=== PATIENT | male | born 1945 | race Caucasian/White ===

== ENCOUNTER → 2018-09-03 12:03 | Outpatient (CLI) | payer MEDICARE, SELFPAY | PROVIDERS: PCP Internal Medicine; Visit Provider Family Medicine | DX: E11.621 Type 2 diabetes mellitus with foot ulcer (principal); L97.515 Non-pressure chronic ulcer of other part of right foot with muscle involvement without evidence of necrosis; I73.9 Peripheral vascular disease, unspecified | CPT/HCPCS: 11042; 73660; 87070; 87205; 93922; 99214 ==

== ENCOUNTER → 2018-09-03 14:29 | Outpatient (CLI) | payer MEDICARE, SELFPAY ==
--- NOTE | 2018-09-03 | DI.RAD.S_ITS ---
PROCEDURE: XR TOE RT MIN 2V INDICATIONS: Type 2 diabetes mellitus with foot ulcer TECHNIQUE: 3 views of the second through fourth toe(s) acquired. COMPARISON: [facility], , TOE MINIMUM 2 VIEWS LEFT, 10/29/2016, 9:44. FINDINGS: Bones: There is indication of portal at the level of the third MTP joint. Skeletal deformities involving the second and fourth toes are seen. Osteoarthritic changes are noted throughout MTP joints and interphalangeal joints. No definite bony erosive changes are seen. No fractures or dislocations. No suspicious bony lesions. Soft tissues: No suspicious soft tissue densities. IMPRESSION: No radiographic evidence of osteomyelitis. Prior amputation of third toe. Hammertoe deformities involving second and fourth toes. Osteoarthritic changes throughout forefoot joints. No fracture or dislocation. Dictated by: Sunny Solorzano M.D. on 09/03/2018 at 15:41 Approved by: Sunny Solorzano M.D. on 09/03/2018 at 15:43
== END ==
PROVIDERS: PCP Internal Medicine; Visit Provider Family Medicine
DX: E11.621 Type 2 diabetes mellitus with foot ulcer (principal); M20.41 Other hammer toe(s) (acquired), right foot; Z89.421 Acquired absence of other right toe(s)
CPT/HCPCS: 73660

== ENCOUNTER → 2018-09-10 08:32 | Outpatient (CLI) | payer MEDICARE, SELFPAY | PROVIDERS: PCP Internal Medicine; Visit Provider Family Medicine | DX: E11.621 Type 2 diabetes mellitus with foot ulcer (principal); E11.40 Type 2 diabetes mellitus with diabetic neuropathy, unspecified; L97.515 Non-pressure chronic ulcer of other part of right foot with muscle involvement without evidence of necrosis; I73.9 Peripheral vascular disease, unspecified | CPT/HCPCS: 97597 ==

== ENCOUNTER → 2018-09-17 09:41 | Outpatient (CLI) | payer MEDICARE, SELFPAY | PROVIDERS: PCP Internal Medicine; Visit Provider Family Medicine | DX: E11.621 Type 2 diabetes mellitus with foot ulcer (principal); E11.40 Type 2 diabetes mellitus with diabetic neuropathy, unspecified; L97.515 Non-pressure chronic ulcer of other part of right foot with muscle involvement without evidence of necrosis | CPT/HCPCS: 87070; 87075; 87077; 87147; 87186; 87205; 97597; 99214 ==

== ENCOUNTER → 2018-09-23 06:44 | Outpatient (CLI) | payer MEDICARE, SELFPAY | PROVIDERS: PCP Internal Medicine; Visit Provider Family Medicine | DX: L97.509 Non-pressure chronic ulcer of other part of unspecified foot with unspecified severity (principal) ==

== ENCOUNTER → 2018-09-23 13:27 | Outpatient (CLI) | payer MEDICARE, SELFPAY | PROVIDERS: PCP Internal Medicine; Visit Provider Family Medicine | DX: E11.621 Type 2 diabetes mellitus with foot ulcer (principal); L97.515 Non-pressure chronic ulcer of other part of right foot with muscle involvement without evidence of necrosis; B95.7 Other staphylococcus as the cause of diseases classified elsewhere | CPT/HCPCS: 99214 ==

== ENCOUNTER → 2018-09-30 08:18 | Outpatient (CLI) | payer MEDICARE, SELFPAY ==
--- NOTE | 2018-09-30 | DI.MRI.S_ITS ---
PROCEDURE: MR FOOT RT WO/W CON INDICATIONS: RIGHT FOURTH TOE ULCER TECHNIQUE: Noncontrast sagittal T1 spin echo and T2 fast spin echo with fat saturation, long-axis T1 spin echo and T2 fast spin echo with fat saturation; short-axis T1 spin echo, proton density fast spin echo, and T2 fast spin echo with fat saturation through the forefoot. Post-contrast short axis, long axis, and sagittal T1 spin echo with fat saturation through the forefoot. COMPARISON: [facility], CR, XR TOE RT MIN 2V, 09/03/2018, 14:39. FINDINGS: Image quality: Excellent. Bones and joints: There is abnormal edema and enhancement of the 4th middle phalanx with mild associated T1 hypointensity. There is mild associated cortical erosion as well as mild periosteal edema and enhancement on the plantar aspect of the 4th middle phalanx. The findings are consistent with osteomyelitis. There is mild periosteal edema and enhancement also noted along the distal plantar aspect of the 4th proximal phalanx which may also represent developing osteomyelitis. No definite evidence of osteomyelitis elsewhere. No joint effusions. There is mild to moderate degeneration of the 1st interphalangeal joint with mild osteophytosis and subchondral edema. Mild degeneration also demonstrated at the 1st metatarsophalangeal joint. There is prior amputation of the 3rd toe at the level of the metatarsophalangeal joint. The sesamoid bones appear in expected positions, without internal edema. No metatarsophalangeal joint degeneration. No intraosseous lesions. Soft tissues: There is a suspected small ulcer along the plantar aspect of the 4th toe with associated soft tissue edema and enhancement. No discrete abscess collection or sinus tract visualized. The visualized plantar foot muscles demonstrate normal signal and bulk. Visualized flexor and extensor tendons appear intact, without tenosynovitis. The distal insertions of the peroneus brevis and longus tendons appear intact. The principal Lisfranc ligament appears intact. No soft tissue ganglion cysts or bursal fluid collections. IMPRESSION: 1. Findings consistent of osteomyelitis of the 4th middle phalanx and suspected developing osteomyelitis in the distal plantar aspect of the 4th proximal phalanx. No joint effusions to suggest septic arthritis. 2. Abnormal soft tissue edema and enhancement of the 4th toe consistent with cellulitis with a suspected small ulcer along the plantar aspect. No discrete abscess collection or sinus tract identified. Dictated by: Eddie Steward M.D. on 09/30/2018 at 13:50 Approved by: Eddie Steward M.D. on 09/30/2018 at 14:02
== END ==
PROVIDERS: PCP Internal Medicine; Referring Provider Family Medicine; Visit Provider Internal Medicine
DX: E11.621 Type 2 diabetes mellitus with foot ulcer (principal); L97.515 Non-pressure chronic ulcer of other part of right foot with muscle involvement without evidence of necrosis; M86.171 Other acute osteomyelitis, right ankle and foot
CPT/HCPCS: 73720; 99214; A9579

== ENCOUNTER → 2018-09-30 09:44 | Outpatient (CLI) | payer MEDICARE, SELFPAY | PROVIDERS: PCP Internal Medicine; Visit Provider Family Medicine | DX: E11.621 Type 2 diabetes mellitus with foot ulcer (principal); L97.515 Non-pressure chronic ulcer of other part of right foot with muscle involvement without evidence of necrosis; M86.171 Other acute osteomyelitis, right ankle and foot | CPT/HCPCS: 99214 ==

== ENCOUNTER → 2018-10-07 09:50 | Outpatient (CLI) | payer MEDICARE, SELFPAY | PROVIDERS: PCP Internal Medicine; Visit Provider Family Medicine | DX: E11.621 Type 2 diabetes mellitus with foot ulcer (principal); E11.40 Type 2 diabetes mellitus with diabetic neuropathy, unspecified; L97.515 Non-pressure chronic ulcer of other part of right foot with muscle involvement without evidence of necrosis; M86.171 Other acute osteomyelitis, right ankle and foot; L03.031 Cellulitis of right toe | CPT/HCPCS: 97597 ==

== ENCOUNTER → 2018-10-14 10:21 | Outpatient (CLI) | payer MEDICARE, SELFPAY | PROVIDERS: PCP Internal Medicine; Visit Provider Family Medicine | DX: E11.621 Type 2 diabetes mellitus with foot ulcer (principal); E11.40 Type 2 diabetes mellitus with diabetic neuropathy, unspecified; L97.515 Non-pressure chronic ulcer of other part of right foot with muscle involvement without evidence of necrosis; M86.171 Other acute osteomyelitis, right ankle and foot; Z79.899 Other long term (current) drug therapy | CPT/HCPCS: 99214 ==

== ENCOUNTER → 2018-10-19 11:02 | Outpatient (CLI) | payer MEDICARE, SELFPAY ==
--- NOTE | 2018-10-19 | DI.RAD.S_ITS ---
PROCEDURE: XR CHEST 2V INDICATIONS: Encounter for examination and observation for other specifie TECHNIQUE: 2 views of the chest were acquired. COMPARISON: None. FINDINGS: Surgical changes and devices: Aortic root expandable stent noted, presumed valve annulus. Lungs and pleura: Lungs are clear. No pleural effusions or pneumothorax. Mediastinum: Mediastinal contours are normal. Heart size is normal. Bones and chest wall: No suspicious bony abnormalities. Soft tissues appear unremarkable. IMPRESSION: Expandable aortic root stent presumably for aortic valve annulus. No cardiomegaly or CHF. Dictated by: Flako Phipps M.D. on 10/19/2018 at 11:58 Approved by: Flako Phipps M.D. on 10/19/2018 at 12:09
[2018-10-19 12:18] LABS: Alanine Aminotransferase 22 IU/L (21-72); Albumin Globulin Ratio 1.1 (1.0-2.8); Alkaline Phosphatase 68 U/L (38-126); Aspartate Aminotransferase 28 IU/L (17-59); Bilirubin Total 0.7 mg/dL (0.2-1.3); Blood Urea Nitrogen 39 mg/dL (9-20); Calcium 9.7 mg/dL (8.4-10.2); Carbon Dioxide 27 mmol/L (22-32); Chloride 103 mmol/L (98-107); Globulin 3.8 g/dL (1.7-4.1); Glucose 163 mg/dL (80-110); Potassium 4.6 mmol/L (3.4-5.1); Sodium 140 mmol/L (137-145); Total Protein 7.8 g/dL (6.3-8.2)
[2018-10-19 12:33] LABS: Estimated Glomerular Filt Rate 45.6 mL/min (>60); HEMOLYSIS < 15 (0-50)
[2018-10-19 13:54] LABS: Digoxin < 0.4 ng/mL (0.8-2.0)
== END ==
PROVIDERS: PCP Internal Medicine; Visit Provider Family Medicine
DX: Z04.89 Encounter for examination and observation for other specified reasons (principal); Z79.899 Other long term (current) drug therapy
CPT/HCPCS: 36415; 71046; 80053; 80162

== ENCOUNTER → 2018-10-28 10:51 | Outpatient (CLI) | payer MEDICARE, SELFPAY ==
[2018-10-28 11:39] LABS: Add Manual Diff / Slide Review NO; Basophils Absolute Auto 0 /uL (0-100); Basophils Percent Auto 0.5 % (0-2); Eosinophils Absolute Auto 700 /uL (0-450); Eosinophils Percent Auto 10.6 % (2-4); Hematocrit 37.6 % (41-53); Hemoglobin 12.6 g/dL (13.5-17.5); Lymphocytes Absolute Auto 1900 /uL (1100-4500); Lymphocytes Percent Auto 28.2 % (25-40); Mean Corpuscular HGB Conc 33.6 % (30-36); Mean Corpuscular Volume 95.3 fL (80-100); Monocytes Absolute Auto 600 /uL (0-900); Monocytes Percent Auto 8.9 % (3-14); Neutrophils Absolute Auto 3500 /uL (1500-7000); Neutrophils Percent Auto 51.8 % (50-75); Platelet Count 129 X10^3/uL (150-400); Red Blood Cell Count 3.95 X10^6/uL (4.5-5.9); White Blood Cell Count 6.7 X10^3/uL (4.5-11.0)
[2018-10-28 12:24] LABS: Erythrocyte Sedimentation Rate 34 MM/HR (0-15)
[2018-10-28 12:51] LABS: BUN Creatinine Ratio 22.9 (6-22); Blood Urea Nitrogen 32 mg/dL (9-20); C-Reactive Protein Quant 0.5 mg/dL (<1.0); Calcium 9.9 mg/dL (8.4-10.2); Carbon Dioxide 28 mmol/L (22-32); Chloride 105 mmol/L (98-107); Estimated Glomerular Filt Rate 49.4 mL/min (>60); Glucose 176 mg/dL (80-110); HEMOLYSIS < 15 (0-50); Sodium 143 mmol/L (137-145)
[2018-10-28 12:52] LABS: Digoxin < 0.4 ng/mL (0.8-2.0)
== END ==
PROVIDERS: PCP Internal Medicine; Visit Provider Family Medicine
DX: E11.621 Type 2 diabetes mellitus with foot ulcer (principal); L97.514 Non-pressure chronic ulcer of other part of right foot with necrosis of bone; M86.171 Other acute osteomyelitis, right ankle and foot; Z79.899 Other long term (current) drug therapy
CPT/HCPCS: 36415; 80048; 80162; 85025; 85651; 86140

== ENCOUNTER → 2018-10-28 11:27 | Outpatient (CLI) | payer MEDICARE, SELFPAY | PROVIDERS: PCP Internal Medicine; Visit Provider Family Medicine | DX: E11.621 Type 2 diabetes mellitus with foot ulcer (principal); E11.40 Type 2 diabetes mellitus with diabetic neuropathy, unspecified; L97.515 Non-pressure chronic ulcer of other part of right foot with muscle involvement without evidence of necrosis; M86.171 Other acute osteomyelitis, right ankle and foot; Z79.899 Other long term (current) drug therapy | CPT/HCPCS: 99213; 99214 ==

== ENCOUNTER → 2018-11-02 10:56 | Outpatient (CLI) | payer MEDICARE, SELFPAY ==
--- NOTE | 2018-11-02 | DI.RAD.S_ITS ---
PROCEDURE: XR TOE RT MIN 2V INDICATIONS: RIGHT 4TH TOE PAIN DR CANALES 3 VIEWS TECHNIQUE: 3 views of the fourth toe(s) acquired. COMPARISON: [facility], MR, MR FOOT RT WO/W CON, 09/30/2018, 8:34. [facility], CR, XR TOE RT MIN 2V, 09/03/2018, 14:39. FINDINGS: Bones: No fractures or dislocations. There is lucency and cortical defect in the fourth middle phalanx compatible with osteomyelitis. There is amputation of the third toe. Soft tissues: No suspicious soft tissue densities. Soft tissue swelling of the forefoot. IMPRESSION: Lucency and cortical defect in the fourth middle phalanx are likely secondary to osteomyelitis. Dictated by: Ramya Renee M.D. on 11/02/2018 at 14:03 Approved by: Ramya Renee M.D. on 11/02/2018 at 14:06
== END ==
PROVIDERS: PCP Internal Medicine; Visit Provider Family Medicine
DX: E11.621 Type 2 diabetes mellitus with foot ulcer (principal); L97.514 Non-pressure chronic ulcer of other part of right foot with necrosis of bone; M79.674 Pain in right toe(s)
CPT/HCPCS: 73660

== ENCOUNTER → 2018-11-04 09:25 | Outpatient (CLI) | payer MEDICARE, SELFPAY | PROVIDERS: PCP Internal Medicine; Visit Provider Family Medicine | DX: E11.621 Type 2 diabetes mellitus with foot ulcer (principal); E11.40 Type 2 diabetes mellitus with diabetic neuropathy, unspecified; L97.515 Non-pressure chronic ulcer of other part of right foot with muscle involvement without evidence of necrosis; M86.171 Other acute osteomyelitis, right ankle and foot; I73.9 Peripheral vascular disease, unspecified; Z79.899 Other long term (current) drug therapy | CPT/HCPCS: 97597 ==

== ENCOUNTER → 2018-11-11 10:19 | Outpatient (CLI) | payer MEDICARE, SELFPAY | PROVIDERS: PCP Internal Medicine; Visit Provider Family Medicine | DX: E11.621 Type 2 diabetes mellitus with foot ulcer (principal); L97.515 Non-pressure chronic ulcer of other part of right foot with muscle involvement without evidence of necrosis | CPT/HCPCS: 99212 ==

== ENCOUNTER → 2018-11-18 10:41 | Outpatient (CLI) | payer MEDICARE, SELFPAY | PROVIDERS: PCP Internal Medicine; Visit Provider Family Medicine | DX: E11.621 Type 2 diabetes mellitus with foot ulcer (principal); L97.515 Non-pressure chronic ulcer of other part of right foot with muscle involvement without evidence of necrosis; R60.0 Localized edema | CPT/HCPCS: 99213 ==

== ENCOUNTER → 2018-11-25 09:45 | Outpatient (CLI) | payer MEDICARE, SELFPAY | PROVIDERS: PCP Internal Medicine; Visit Provider Family Medicine | DX: E11.621 Type 2 diabetes mellitus with foot ulcer (principal); L97.515 Non-pressure chronic ulcer of other part of right foot with muscle involvement without evidence of necrosis; M86.171 Other acute osteomyelitis, right ankle and foot; Z79.899 Other long term (current) drug therapy; R60.0 Localized edema | CPT/HCPCS: 11042 ==

== ENCOUNTER → 2018-12-02 09:04 | Outpatient (CLI) | payer MEDICARE, SELFPAY | PROVIDERS: PCP Internal Medicine; Visit Provider Family Medicine | DX: E11.621 Type 2 diabetes mellitus with foot ulcer (principal); E11.40 Type 2 diabetes mellitus with diabetic neuropathy, unspecified; L97.515 Non-pressure chronic ulcer of other part of right foot with muscle involvement without evidence of necrosis; L24.9 Irritant contact dermatitis, unspecified cause; I73.9 Peripheral vascular disease, unspecified; Z79.899 Other long term (current) drug therapy; R60.0 Localized edema; M86.171 Other acute osteomyelitis, right ankle and foot | CPT/HCPCS: 99214 ==

== ENCOUNTER → 2018-12-09 08:43 | Outpatient (CLI) | payer MEDICARE, SELFPAY | PROVIDERS: PCP Internal Medicine; Visit Provider Family Medicine | DX: E11.621 Type 2 diabetes mellitus with foot ulcer (principal); E11.40 Type 2 diabetes mellitus with diabetic neuropathy, unspecified; L97.516 Non-pressure chronic ulcer of other part of right foot with bone involvement without evidence of necrosis; M86.171 Other acute osteomyelitis, right ankle and foot; Z79.899 Other long term (current) drug therapy; L97.511 Non-pressure chronic ulcer of other part of right foot limited to breakdown of skin | CPT/HCPCS: 97597; 99213 ==

== ENCOUNTER → 2018-12-09 09:35 | Outpatient (CLI) | payer MEDICARE, SELFPAY ==
--- NOTE | 2018-12-09 | DI.RAD.S_ITS ---
PROCEDURE: XR FOOT RT MIN 3V INDICATIONS: EVAL OSTEO TECHNIQUE: 3 views of the foot were acquired. COMPARISON: [facility], CR, XR TOE RT MIN 2V, 11/02/2018, 11:17. [facility], CR, FOOT 3V RIGHT, 02/20/2014, 11:33. FINDINGS: Bones: Prior amputation of the third digit with intact appearance of the third metatarsal head. No traumatic bone fractures or dislocations are currently seen but there is again noted mildly irregular lucencies along the lateral cortex of the fourth middle phalanx, where a slight transverse lucency also is present suspicious for pathologic fracture in an area of mild osteomyelitis.. No suspicious bony lesions. Soft tissues: No tibiotalar joint effusion. Achilles tendon appears normal. IMPRESSION: The patient has undergone prior amputation of the third digit from the metatarsal head distally. The current examination shows mildly irregular osseous radiodensity at the middle phalanx of the fourth digit and what may be a fracture previously documented involving the fourth middle phalanx, previously present. A definite fracture in that area is not found. Dictated by: Flako Phipps M.D. on 12/09/2018 at 10:42 Approved by: Flako Phipps M.D. on 12/09/2018 at 10:47
[2018-12-09 11:04] LABS: Add Manual Diff / Slide Review NO; Basophils Absolute Auto 0 /uL (0-100); Basophils Percent Auto 0.5 % (0-2); Eosinophils Absolute Auto 800 /uL (0-450); Eosinophils Percent Auto 12.9 % (2-4); Hematocrit 37.1 % (41-53); Hemoglobin 12.3 g/dL (13.5-17.5); Lymphocytes Absolute Auto 1800 /uL (1100-4500); Lymphocytes Percent Auto 28.7 % (25-40); Mean Corpuscular HGB Conc 33.2 % (30-36); Mean Corpuscular Hemoglobin 31.9 PG (26-34); Mean Corpuscular Volume 96.1 fL (80-100); Monocytes Absolute Auto 600 /uL (0-900); Monocytes Percent Auto 9.4 % (3-14); Neutrophils Absolute Auto 3100 /uL (1500-7000); Neutrophils Percent Auto 48.5 % (50-75); Platelet Count 130 X10^3/uL (150-400); Red Blood Cell Count 3.86 X10^6/uL (4.5-5.9); Red Cell Distribution Width 16.3 % (11.6-14.8); White Blood Cell Count 6.4 X10^3/uL (4.5-11.0)
[2018-12-09 11:38] LABS: Erythrocyte Sedimentation Rate 36 MM/HR (0-15)
[2018-12-09 11:42] LABS: BUN Creatinine Ratio 22.1 (6-22); Blood Urea Nitrogen 31 mg/dL (9-20); C-Reactive Protein Quant 0.7 mg/dL (<1.0); Calcium 10.1 mg/dL (8.4-10.2); Carbon Dioxide 29 mmol/L (22-32); Chloride 102 mmol/L (98-107); Estimated Glomerular Filt Rate 49.4 mL/min (>60); Glucose 168 mg/dL (80-110); HEMOLYSIS < 15 (0-50); Potassium 5.1 mmol/L (3.4-5.1); Sodium 141 mmol/L (137-145)
== END ==
PROVIDERS: PCP Internal Medicine; Visit Provider Family Medicine
DX: E11.621 Type 2 diabetes mellitus with foot ulcer (principal); E11.40 Type 2 diabetes mellitus with diabetic neuropathy, unspecified; M86.171 Other acute osteomyelitis, right ankle and foot; L97.516 Non-pressure chronic ulcer of other part of right foot with bone involvement without evidence of necrosis; L97.511 Non-pressure chronic ulcer of other part of right foot limited to breakdown of skin; Z79.899 Other long term (current) drug therapy
CPT/HCPCS: 36415; 73630; 80048; 85025; 85651; 86140; 97597; 99213

== ENCOUNTER → 2018-12-16 09:08 | Outpatient (CLI) | payer MEDICARE, SELFPAY | PROVIDERS: PCP Internal Medicine; Visit Provider Family Medicine | DX: E11.621 Type 2 diabetes mellitus with foot ulcer (principal); L97.515 Non-pressure chronic ulcer of other part of right foot with muscle involvement without evidence of necrosis; L97.511 Non-pressure chronic ulcer of other part of right foot limited to breakdown of skin; R60.0 Localized edema | CPT/HCPCS: 11044; 87070; 87075; 87077; 87186; 87205; 97597 ==

== ENCOUNTER 2018-12-23 06:20 | Day surgery (SDC) | payer MEDICARE, SELFPAY ==
[2018-12-22 08:03] VITALS: BMI 35.2
[2018-12-23 07:15] VITALS: BP 170/58; PULSE 67; RESP 16; TEMP 36.7; O2SAT 98; BMI 34.7
[2018-12-23 07:31] VITALS: BMI 34.7
--- NOTE | 2018-12-23 07:33 | PM.PREOP ---
Pre-operative Note Interval Note History & Physical reviewed/Exam performed by Physician: Yes Changes to H&P: No
--- NOTE | 2018-12-23 07:33 | PM.OP.1 ---
Operative Date/Time/Diagnoses Date of procedure: 12/23/18 Time of procedure: 07:34 Pre-op diagnosis: Right fourth toe wound, hammertoe Post-op diagnosis: same Procedure & Clinicians Procedure: Right fourth toe amputation Same procedure as scheduled: Yes Indications: Ongoing wound to the toe, conservative measures have failed to heal it, surgical option has been chosen. Surgeon: Samantha Palm Click Yes if Unassisted: Yes Anesthesia Type: MAC +/- Operative Notes Closure Type: primary Specimen(s): other (1) Culture swab Mt4 head 2) Culture bone 4th proximal phalanx head) Estimated Blood Loss (mL): 20 Blood products transfused: none Procedure in detail: The patient was brought to the operating room and placed on the operating table in the supine position. Well padded, appropriately aligned. After induction of sedation, local anesthesia was obtained to the right foot and the foot and ankle were prepped and draped in the usual aseptic manner. After check of anesthesia, a full-thickness circumferential incision was made around the 4th toe. This was then continued into the metatarsophalangeal joint linearly. The toe was carefully disarticulated. A culture swab was taken of the 4th metatarsal head. The toe was passed from the field. The area was irrigated with copious amounts of normal sterile saline. No necrotic tissue or abscesses were noted. no purulent discharge is noted. the 5th toe medially has a small fibrous wound with a little bit of maceration and redness but no erythema. That wound does not appear to probe bone. Skin and tissue was revised at the 4th toe amputation site to allow for appropriate closure. Vessels were cauterized and ligated as necessary. 3-0 and 2 0 nylon was used to close the skin. The area was dressed with a sterile lightly compressive dressing. Proximal phalangeal head of the 4th toe that had been removed was sent for culture. Complications: none Post-operative Condition: stable Disposition: PACU Plan for aftercare: Following a period of postoperative monitoring, the patient be discharged home on written and oral postoperative instructions including keeping the dressing dry and intact, avoiding significant ambulation on the foot, and elevating the foot when seated home. DVT prevention techniques have been reviewed. For the 1st postoperative visit the dressing will be changed and close to the 2nd or 3rd postoperative week we will likely remove the sutures. The 5th toe wound was able to be gently wrapped in the dressing so does not need to be changed at this point.
--- NOTE | 2018-12-23 08:10 | SUR.OPER ---
Supine on padded OR bed, head on pillow, arms secured on padded arm boards at <90 degrees abduction, legs uncrossed, safety belt at thigh.
[2018-12-23] MEDS: CLINDAMYCIN 600 MG/50 ML PIGGYBACK 50 MG IV (08:15)
[2018-12-23] MEDS: BUPIVACAINE 0.5% (PF) VIAL 30 ML INJ (08:21)
[2018-12-23] MEDS: LIDOCAINE 2% INJ MDV 20 ML INJ (08:21)
[2018-12-23 08:53] VITALS: BP 127/62; PULSE 55; RESP 16; TEMP 36.5; O2SAT 99
--- NOTE | 2018-12-23 09:32 | SUR.PHASEII ---
discharge nursing note: Patient AA/Ox3. VSS, No complaints of pain. Dressing CDI, surgical shoe placed prior to discharge. Transported to car via wheelchair. Home with spouse.
== END 2018-12-23 09:34 | disposition home or self-care (01) ==
PROVIDERS: PCP Internal Medicine; Visit Provider Podiatrist
PROC: (CPT 28820; principal; 2018-12-23 07:45)
DX: E11.621 Type 2 diabetes mellitus with foot ulcer (principal); L97.514 Non-pressure chronic ulcer of other part of right foot with necrosis of bone; M20.41 Other hammer toe(s) (acquired), right foot; Z79.84 Long term (current) use of oral hypoglycemic drugs; G47.30 Sleep apnea, unspecified; I25.2 Old myocardial infarction
CPT/HCPCS: 28820; 87070; 87075; 87077; 87186; 87205; J2250; J2704; J3010

== ENCOUNTER → 2018-12-30 08:29 | Outpatient (CLI) | payer MEDICARE, SELFPAY | PROVIDERS: PCP Internal Medicine; Visit Provider Family Medicine | DX: E11.621 Type 2 diabetes mellitus with foot ulcer (principal); L97.515 Non-pressure chronic ulcer of other part of right foot with muscle involvement without evidence of necrosis; I73.9 Peripheral vascular disease, unspecified; Z79.899 Other long term (current) drug therapy; L53.8 Other specified erythematous conditions | CPT/HCPCS: 99212; 99213 ==

== ENCOUNTER → 2019-01-06 10:03 | Outpatient (CLI) | payer MEDICARE, SELFPAY | PROVIDERS: PCP Internal Medicine; Visit Provider Family Medicine | DX: E11.621 Type 2 diabetes mellitus with foot ulcer (principal); L97.515 Non-pressure chronic ulcer of other part of right foot with muscle involvement without evidence of necrosis; I73.9 Peripheral vascular disease, unspecified; Z79.899 Other long term (current) drug therapy; L53.8 Other specified erythematous conditions | CPT/HCPCS: 97597 ==

== ENCOUNTER → 2019-01-13 08:55 | Outpatient (CLI) | payer MEDICARE, SELFPAY | PROVIDERS: PCP Internal Medicine; Visit Provider Family Medicine | DX: E11.621 Type 2 diabetes mellitus with foot ulcer (principal); I73.9 Peripheral vascular disease, unspecified; Z79.899 Other long term (current) drug therapy; T81.31XA Disruption of external operation (surgical) wound, not elsewhere classified, initial encounter; L97.512 Non-pressure chronic ulcer of other part of right foot with fat layer exposed | CPT/HCPCS: 11042; 87070; 87077; 87205; 99214 ==

== ENCOUNTER → 2019-01-20 09:10 | Outpatient (CLI) | payer MEDICARE, SELFPAY | PROVIDERS: PCP Internal Medicine; Visit Provider Family Medicine | DX: E11.621 Type 2 diabetes mellitus with foot ulcer (principal); E11.628 Type 2 diabetes mellitus with other skin complications; T81.31XA Disruption of external operation (surgical) wound, not elsewhere classified, initial encounter; S91.301A Unspecified open wound, right foot, initial encounter; L08.9 Local infection of the skin and subcutaneous tissue, unspecified; L97.519 Non-pressure chronic ulcer of other part of right foot with unspecified severity; I73.9 Peripheral vascular disease, unspecified; E11.40 Type 2 diabetes mellitus with diabetic neuropathy, unspecified; Z79.899 Other long term (current) drug therapy | CPT/HCPCS: 11042 ==

== ENCOUNTER → 2019-01-27 09:11 | Outpatient (CLI) | payer MEDICARE, SELFPAY | PROVIDERS: PCP Internal Medicine; Visit Provider Family Medicine | DX: E11.621 Type 2 diabetes mellitus with foot ulcer (principal); L97.518 Non-pressure chronic ulcer of other part of right foot with other specified severity; I73.9 Peripheral vascular disease, unspecified; R60.0 Localized edema; E11.40 Type 2 diabetes mellitus with diabetic neuropathy, unspecified; Z79.899 Other long term (current) drug therapy | CPT/HCPCS: 11042 ==

== ENCOUNTER → 2019-02-03 08:57 | Outpatient (CLI) | payer MEDICARE, SELFPAY | PROVIDERS: PCP Internal Medicine; Visit Provider Family Medicine | DX: E11.621 Type 2 diabetes mellitus with foot ulcer (principal); E11.628 Type 2 diabetes mellitus with other skin complications; T81.31XA Disruption of external operation (surgical) wound, not elsewhere classified, initial encounter; L97.518 Non-pressure chronic ulcer of other part of right foot with other specified severity; L97.511 Non-pressure chronic ulcer of other part of right foot limited to breakdown of skin; I73.9 Peripheral vascular disease, unspecified; M86.9 Osteomyelitis, unspecified; R60.0 Localized edema; Z79.899 Other long term (current) drug therapy; E11.40 Type 2 diabetes mellitus with diabetic neuropathy, unspecified | CPT/HCPCS: 97597 ==

== ENCOUNTER → 2019-02-10 08:49 | Outpatient (CLI) | payer MEDICARE, SELFPAY | PROVIDERS: PCP Internal Medicine; Visit Provider Family Medicine | DX: E11.628 Type 2 diabetes mellitus with other skin complications (principal); T81.31XD Disruption of external operation (surgical) wound, not elsewhere classified, subsequent encounter; I73.9 Peripheral vascular disease, unspecified; E11.40 Type 2 diabetes mellitus with diabetic neuropathy, unspecified | CPT/HCPCS: 99212 ==

== ENCOUNTER → 2019-03-28 10:00 | Outpatient (CLI) | payer MEDICARE, OTHER, SELFPAY ==
[2019-03-28 11:05] LABS: Add Manual Diff / Slide Review NO; Basophils Absolute Auto 0 /uL (0-100); Basophils Percent Auto 0.6 % (0-2); Eosinophils Absolute Auto 600 /uL (0-450); Eosinophils Percent Auto 9.3 % (2-4); Hematocrit 37.4 % (41-53); Hemoglobin 12.9 g/dL (13.5-17.5); Lymphocytes Absolute Auto 1800 /uL (1100-4500); Lymphocytes Percent Auto 29.9 % (25-40); Mean Corpuscular HGB Conc 34.4 % (30-36); Mean Corpuscular Hemoglobin 32.4 PG (26-34); Mean Corpuscular Volume 94.2 fL (80-100); Monocytes Absolute Auto 600 /uL (0-900); Monocytes Percent Auto 10.3 % (3-14); Neutrophils Absolute Auto 3100 /uL (1500-7000); Neutrophils Percent Auto 49.9 % (50-75); Platelet Count 138 X10^3/uL (150-400); Red Blood Cell Count 3.97 X10^6/uL (4.5-5.9); Red Cell Distribution Width 15.6 % (11.6-14.8); White Blood Cell Count 6.1 X10^3/uL (4.5-11.0)
[2019-03-28 11:09] LABS: Hemoglobin A1C% w Est Avg Glu 7.2 % (4.0-6.0)
[2019-03-28 11:21] LABS: Alanine Aminotransferase 27 IU/L (<50); Albumin 4.2 g/dL (3.5-5.0); Albumin Globulin Ratio 1.1 (1.0-2.8); Alkaline Phosphatase 66 U/L (38-126); Aspartate Aminotransferase 28 IU/L (17-59); Bilirubin Total 0.7 mg/dL (0.2-1.3); Blood Urea Nitrogen 42 mg/dL (9-20); Calcium 9.8 mg/dL (8.4-10.2); Carbon Dioxide 29 mmol/L (22-32); Chloride 103 mmol/L (98-107); Cholesterol 173 mg/dL (140-199); Estimated Glomerular Filt Rate 45.6 mL/min (>60); Globulin 3.7 g/dL (1.7-4.1); Glucose 218 mg/dL (80-110); HDL Cholesterol 27 mg/dL (40-60); HEMOLYSIS < 15 (0-50); LDL Cholesterol Calculated 94 mg/dL (<100); Phosphorous 3.7 mg/dL (2.3-3.7); Potassium 4.7 mmol/L (3.4-5.1); Sodium 142 mmol/L (137-145); Total Protein 7.9 g/dL (6.3-8.2); Triglycerides 260 mg/dL (35-150); Uric Acid 5.7 mg/dL (3.5-8.5)
[2019-03-28 11:26] LABS: Digoxin 0.5 ng/mL (0.8-2.0)
[2019-03-28 11:28] LABS: B Type Natriuretic Peptide 111 (<100)
[2019-03-28 11:38] LABS: Vitamin D 25 Hydroxy (D3) 38.1 ng/mL (30.0-100.0)
[2019-03-28 11:53] LABS: TSH w/ Reflex to FT4 1.87 uIU/mL (0.47-4.68)
[2019-03-28 12:23] LABS: Creatinine Urine Random 141.3 mg/dL
[2019-03-28 12:59] LABS: Microalbumi Creatinin Ratio Ur 317.7 ug/mg CR (<30); Microalbumin Urine Random 44.9 mg/dL (0-1.6)
== END ==
PROVIDERS: PCP Internal Medicine; Visit Provider Internal Medicine
DX: I50.22 Chronic systolic (congestive) heart failure (principal); E11.40 Type 2 diabetes mellitus with diabetic neuropathy, unspecified; N18.3 Chronic kidney disease, stage 3 (moderate); M10.40 Other secondary gout, unspecified site; Z86.79 Personal history of other diseases of the circulatory system; E78.2 Mixed hyperlipidemia; I10 Essential (primary) hypertension
CPT/HCPCS: 36415; 80053; 80061; 80162; 82043; 82306; 82570; 83036; 83880; 84100; 84443; 84550; 85025

== ENCOUNTER → 2019-06-14 11:10 | Outpatient (CLI) | payer MEDICARE, OTHER, SELFPAY ==
[2019-06-14 12:15] LABS: Blood Urea Nitrogen 33 mg/dL (9-20); Calcium 9.7 mg/dL (8.4-10.2); Carbon Dioxide 30 mmol/L (22-32); Chloride 101 mmol/L (98-107); Estimated Glomerular Filt Rate 45.6 mL/min (>60); Glucose 207 mg/dL (80-110); HEMOLYSIS < 15 (0-50); Potassium 4.8 mmol/L (3.4-5.1); Sodium 139 mmol/L (137-145)
[2019-06-14 15:33] LABS: Microalbumi Creatinin Ratio Ur 621.8 ug/mg CR (<30); Microalbumin Urine Random 34.2 mg/dL (0-1.6)
== END ==
PROVIDERS: PCP Student in an Organized Health Care Education/Training Program; Referring Provider Student in an Organized Health Care Education/Training Program; Visit Provider Student in an Organized Health Care Education/Training Program
DX: I25.10 Atherosclerotic heart disease of native coronary artery without angina pectoris (principal); I10 Essential (primary) hypertension; E11.40 Type 2 diabetes mellitus with diabetic neuropathy, unspecified; E11.22 Type 2 diabetes mellitus with diabetic chronic kidney disease
CPT/HCPCS: 36415; 80048; 82043; 82570

== ENCOUNTER → 2020-03-14 18:42 | Outpatient (ROUT) | payer MEDICARE, OTHER, SELFPAY | PROVIDERS: PCP Student in an Organized Health Care Education/Training Program; Visit Provider Family Medicine | DX: S91.105A Unspecified open wound of left lesser toe(s) without damage to nail, initial encounter (principal) | CPT/HCPCS: 87070; 87075; 87077; 87186; 87205 ==